=== PATIENT | male | born 1965 | race Caucasian/White ===

== ENCOUNTER → 2020-03-23 | Outpatient (CLI) | payer OTHER ==
[2020-03-23 12:19] LABS: microscopic required? NO
[2020-03-23 12:49] LABS: ALKALINE PHOSPHATASE 89 U/L (46-116); ALT/SGPT 33 U/L (16-63); AST/SGOT 25 U/L (15-37); BILIRUBIN TOTAL 0.8 mg/dL (0.20-1.00); CALCIUM 8.6 mg/dL (8.5-10.1); CARBON DIOXIDE 28.9 mmol/L (21-32); CHLORIDE SERUM 107 mmol/L (98-107); CHOLESTEROL 137 mg/dL (<200); FREE T4 1.03 ng/dL (0.76-1.46); GFR1 > 60 mL/min; GLUCOSE SERUM 93 mg/dL (74-106); HDL CHOLESTEROL 46 mg/dL (40-60); POTASSIUM SERUM 3.6 mmol/L (3.5-5.1); SODIUM SERUM 141 mmol/L (136-145); TOTAL PROTEIN, SERUM 7.5 g/dL (6.4-8.2); TRIGLYCERIDES 82 mg/dL (<150)
[2020-03-23 12:55] LABS: BASOPHIL % 0.8 % (0.2-1.5); PLATELET COUNT 213 x10^3mcL (152-348)
[2020-03-23 13:00] LABS: UA SPECIFIC GRAVITY >=1.030 (1.005-1.035); urine erythrocyte NEGATIVE (NEGATIVE)
== END | disposition home or self-care (01) ==
LOC: LB 11:55
DX: N50.812 Left testicular pain (principal); R10.32 Left lower quadrant pain; F41.1 Generalized anxiety disorder; N39.8 Other specified disorders of urinary system; Z01.89 Encounter for other specified special examinations; Z13.0 Encounter for screening for diseases of the blood and blood-forming organs and certain disorders involving the immune mechanism; Z13.220 Encounter for screening for lipoid disorders; Z13.228 Encounter for screening for other metabolic disorders; Z13.29 Encounter for screening for other suspected endocrine disorder
CPT/HCPCS: 84153; 84439